=== PATIENT | female | born 1980 | race Caucasian/White ===

== ENCOUNTER 2018-04-05 07:59 | Emergency (ER) | payer OTHER ==
[~2018-04-05] VITALS: Ht 162.6 cm; Wt 81.6 kg
--- OUTSIDE RECORDS SUMMARY | 2018-04-05 08:06 | XMS REPORT ---
Author RIZWANA Bailey [facility] eClinicalWorks Address Unknown Phone Unavailable Care Team Providers Care Manager Quality Systems Name Role Phone RIZWANA JUSTIN CP Unavailable Allergies, Adverse Reactions, Alerts Substance Reaction Event Type Codeine Info Not Available Drug Allergy Cozaar 25 Mg Tablet shortness of breath Non Drug Allergy Problems Problem Type Condition Code Onset Dates Condition Status Problem Other acne 706.1 Active Problem Unspecified labyrinthitis 386.30 Active Problem Screening for thyroid disorder V77.0 Active Problem UTI (urinary tract infection) 599.0 Active Problem Allergic (intrinsic) eczema 691.8 Active Problem Hypertension, benign I10 Active Problem Other malaise and fatigue 780.79 Active Problem Cough 786.2 Active Problem Chest pain, unspecified 786.50 Active Problem Acute bronchitis 466.0 Active Assessment Chest pain, unspecified type R07.9 Active Problem Acute upper respiratory infections of unspecified site 465.9 Active Problem Urinary tract infection, site not specified 599.0 Active Assessment Family history of early CAD Z82.49 Active Problem Acute pharyngitis 462 Active Medications Medication Code System Code Instructions Start Date End Date Status Dosage Lisinopril-Hydrochlorothiazide [facility] [id number] 20-25 TAKE ONE TABLET BY MOUTH DAILY Depo-Provera [facility] [address]-78 150 MG/ML Intramuscular 1 ml Fish Oil [facility] [address]841 306 MG Orally not defined Bentyl [facility] [address]-30 20 MG Orally Four times a day 1 tablet Metoprolol Tartrate [facility] 46795857432 25 TAKE ONE TABLET BY MOUTH TWICE A DAY Procedures Procedure Coding System Code Date ELECTROCARDIOGRAM, TRACING CPT-4 52057 Apr 15, 2015 Office Visit, Est Pt., Level 3 CPT-4 28984 Apr 15, 2015 CHEST X-RAY CPT-4 21384 Apr 15, 2015 Vital Signs Date/Time: Apr 15, 2015 Temperature 98.4 F Weight 213.4 lbs Height 64 in BMI 36.63 Index Blood Pressure Diastolic 74 mmHg Blood Pressure Systolic 128 mmHg Cardiac Monitoring Heart Rate 80 bpm Results No Known Results Summary Purpose eClinicalWorks Submission
--- OUTSIDE RECORDS SUMMARY | 2018-04-05 08:06 | XMS REPORT ---
Author RIZWANA Bailey [facility] eClinicalWorks Address Unknown Phone Unavailable Care Team Providers Care Insemination Worker Name Role Phone RIZWANA JUSTIN CP Unavailable [...] Active Problem Acute bronchitis 466.0 Active Assessment Allergic reaction, subsequent encounter T78.40XD Active Problem Acute upper respiratory infections of unspecified site 465.9 Active Problem Urinary tract infection, site not specified 599.0 Active Assessment Hypertension, benign I10 Active Problem Acute pharyngitis 462 Active Medications Medication Code System Code Instructions Start Date End Date Status Dosage Bentyl [facility] [address]-33 20 MG Orally Four times a day 1 tablet HydrOXYzine HCl [facility] [address]-31 50 MG Orally every 6 hrs Jan 02, 2015 1 tablet as needed Depo-Provera [facility] [address]-14 150 MG/ML Intramuscular 1 ml Metoprolol Tartrate [facility] 86016593824 25 TAKE ONE TABLET BY MOUTH TWICE A DAY Lisinopril-Hydrochlorothiazide [facility] [id number] 20-25 TAKE ONE TABLET BY MOUTH DAILY Procedures Procedure Coding System Code Date DEPO MEDROL 40 MG/ML CPT-4 J1030 Jan 02, 2015 THER/PROPH/DIAG INJ, SC/IM CPT-4 04080 Jan 02, 2015 Office Visit, Est Pt., Level 3 CPT-4 34603 Jan 02, 2015 Vital Signs Date/Time: Jan 02, 2015 Temperature 98.7 F Weight 214.1 lbs Height 64 in BMI 36.75 Index Blood Pressure Diastolic 80 mmHg Blood Pressure Systolic 122 mmHg Cardiac Monitoring Heart Rate 84 bpm Results No Known Results Summary Purpose eClinicalWorks Submission
--- OUTSIDE RECORDS SUMMARY | 2018-04-05 08:06 | XMS REPORT ---
Author ARY Ca [facility] eClinicalWorks Address Unknown Phone Unavailable Care Team Providers Care Manager Respiratory Care Name Role Phone ARY DON CP Unavailable Allergies, Adverse Reactions, Alerts Substance Reaction Event Type Codeine Info Not Available Drug Allergy Cozaar 25 Mg Tablet shortness of breath Non Drug Allergy Problems Problem Type Condition ICD-9 Code Onset Dates Condition Status Problem Acute pharyngitis 462 Active Problem Screening for thyroid disorder V77.0 Active Problem Other acne 706.1 Active Problem Allergic (intrinsic) eczema 691.8 Active Problem Chest pain, unspecified 786.50 Active Problem UTI (urinary tract infection) 599.0 Active Problem Cough 786.2 Active Problem Unspecified labyrinthitis 386.30 Active Problem Acute bronchitis 466.0 Active Problem Other malaise and fatigue 780.79 Active Assessment Allergic (intrinsic) eczema 691.8 Active Assessment UTI (urinary tract infection) 599.0 Active Problem Acute upper respiratory infections of unspecified site 465.9 Active Problem Urinary tract infection, site not specified 599.0 Active Medications Medication Code System Code Instructions Start Date End Date Status Dosage Lisinopril-Hydrochlorothiazide [facility] [id number] 20-25 TAKE ONE TABLET BY MOUTH DAILY Hydrocortisone [facility] [address]-59 2.5 % Externally Twice a day Dec 11, 2014 Jan 10, 2015 1 application to affected area Metoprolol Tartrate [facility] 46085817119 25 TAKE ONE TABLET BY MOUTH TWICE A DAY Pyridium [facility] [address]-85 200 MG Orally Three times a day Dec 11, 2014 Dec 25, 2014 1 tablet after meals Sulfamethoxazole-TMP DS [facility] [address]-01 800-160 MG Orally 2 times a day Dec 11, 2014 Dec 21, 2014 1 tablet Depo-Provera [facility] [address]-91 150 MG/ML Intramuscular 1 ml Procedures Procedure Coding System Code Date Office Visit, Est Pt., Level 3 CPT-4 85370 Dec 11, 2014 URINALYSIS, AUTO, W/O SCOPE CPT-4 03466 Dec 11, 2014 Vital Signs Date/Time: Dec 11, 2014 Temperature 98.5 F Weight 214.1 lbs Height 64 in BMI 36.75 Index Blood Pressure Diastolic 60 mmHg Blood Pressure Systolic 120 mmHg Cardiac Monitoring Heart Rate 82 bpm Results Name Result Date Reference Range Unit Abnormality Flag UA LONG DIP (IN HOUSE) Summary Purpose eClinicalWorks Submission
--- OUTSIDE RECORDS SUMMARY | 2018-04-05 08:06 | XMS REPORT ---
Author Author SLADE HEAD Organization eClinicalWorks Address Unknown Phone Unavailable Care Team Providers Care Boatwright Name Role Phone SLADE HEAD CP Unavailable Allergies, Adverse Reactions, Alerts Substance Reaction Event Type Codeine Info Not Available Drug Allergy Cozaar 25 Mg Tablet shortness of breath Non Drug Allergy Problems Problem Type Condition Code Onset Dates Condition Status Problem Acute pharyngitis 462 Active Problem Screening for thyroid disorder V77.0 Active Problem Other acne 706.1 Active Problem Allergic (intrinsic) eczema 691.8 Active Problem Chest pain, unspecified 786.50 Active Problem UTI (urinary tract infection) 599.0 Active Problem Cough 786.2 Active Problem Unspecified labyrinthitis 386.30 Active Problem Acute bronchitis 466.0 Active Problem Other malaise and fatigue 780.79 Active Assessment Urticaria L50.9 Active Problem Acute upper respiratory infections of unspecified site 465.9 Active Problem Urinary tract infection, site not specified 599.0 Active Medications Medication Code System Code Instructions Start Date End Date Status Dosage Metoprolol Tartrate [facility] [id number] 25 TAKE ONE TABLET BY MOUTH TWICE A DAY Lisinopril-Hydrochlorothiazide [facility] [id number] 20-25 TAKE ONE TABLET BY MOUTH DAILY Depo-Provera [facility] [address]-82 150 MG/ML Intramuscular 1 ml PredniSONE [facility] [address]-46 50 MG Orally Once a day Dec 23, 2014 Dec 28, 2014 as directed Procedures Procedure Coding System Code Date Office Visit, Est Pt., Level 2 CPT-4 55703 Dec 23, 2014 Vital Signs Date/Time: Dec 23, 2014 Temperature 98.0 F Weight 213 lbs Height 64 in BMI 36.56 Index Blood Pressure Diastolic 62 mmHg Blood Pressure Systolic 128 mmHg Cardiac Monitoring Heart Rate 88 bpm Results No Known Results Summary Purpose eClinicalWorks Submission
--- OUTSIDE RECORDS SUMMARY | 2018-04-05 08:06 | XMS REPORT ---
Author Author RIZWANA JUSTIN Organization eClinicalWorks Address Unknown Phone Unavailable Care Team Providers Care [facility] Receiving Clerk Name Role Phone RIZWANA JUSTIN CP Unavailable Allergies No Known Allergies Problems Problem Type Condition Code Onset Dates [...] Active Problem Acute bronchitis 466.0 Active Assessment Hypertension, benign I10 Active Problem Acute upper respiratory infections of unspecified site 465.9 Active Problem Urinary tract infection, site not specified 599.0 Active Problem Acute pharyngitis 462 Active Medications No Known Medications Procedures Procedure Coding System Code Date COMPLETE CBC W/AUTO DIFF WBC CPT-4 58262 Jan 07, 2015 LIPID PANEL CPT-4 76342 Jan 07, 2015 ASSAY THYROID STIM HORMONE CPT-4 40251 Jan 07, 2015 VENIPUNCT, ROUTINE* CPT-4 79867 Jan 07, 2015 COMPREHEN METABOLIC PANEL CPT-4 46718 Jan 07, 2015 Results Name Result Date Reference Range Unit Abnormality Flag ROUTINE VENIPUNCTURE Summary Purpose eClinicalWorks Submission
--- OUTSIDE RECORDS SUMMARY | 2018-04-05 08:07 | XMS REPORT | Continuity of Care Document ---
Author Author [facility] Address Unknown Phone Unavailable Allergies Active Description Code Type Severity Reaction Onset Reported/Identified Relationship to Patient Clinical Status Yes Imitrex Drug Allergy N/A N/A 06/12/2008 Yes Maxalt-FOOD SERVICE ATTENDANT Drug Allergy N/A N/A 06/12/2008 Yes Imitrex Drug Allergy 06/12/2008 Yes Maxalt-FOOD SERVICE ATTENDANT Drug Allergy 06/12/2008 Yes Flonase Drug Allergy N/A N/A 08/02/2008 Yes Flonase Drug Allergy 08/02/2008 Yes codeine [id number] Drug Allergy Unknown N/A 06/09/2009 Yes fluticasone [id number] Drug Allergy Unknown N/A 06/09/2009 Yes tramadol [id number] Drug Allergy Unknown N/A 06/09/2009 Yes Coumadin Drug Allergy N/A N/A 06/01/2011 Yes Coumadin Drug Allergy 06/01/2011 Yes Cozaar 25 mg Tablet Drug Allergy N/A N/A 06/06/2011 Yes Cozaar 25 mg Tablet Drug Allergy 06/06/2011 Yes Codeine Drug Allergy N/A N/A 02/20/2012 Yes Codeine Drug Allergy 02/20/2012 Medications There is no data. Problems Date Dx Coded Attending Type Code Diagnosis Diagnosed By 09/26/2007 RIZWANA JUSTIN APRN 616.10 VAGINITIS AND VULVOVAGINITIS UNSPECIFIED 09/26/2007 616.10 VAGINITIS AND VULVOVAGINITIS UNSPECIFIED 09/26/2007 616.10 VAGINITIS AND VULVOVAGINITIS UNSPECIFIED 09/26/2007 MICHAEL KNAPP APRN 616.10 VAGINITIS AND VULVOVAGINITIS UNSPECIFIED 09/26/2007 616.10 VAGINITIS AND VULVOVAGINITIS UNSPECIFIED 09/26/2007 DANTE CIFUENTES DO 616.10 VAGINITIS AND VULVOVAGINITIS UNSPECIFIED 09/26/2007 MARU SOUSA APRN N 616.10 VAGINITIS AND VULVOVAGINITIS UNSPECIFIED 09/26/2007 RIZWANA JUSTIN APRN 616.10 VAGINITIS AND VULVOVAGINITIS UNSPECIFIED 09/26/2007 KG LEONARDO APRN R 616.10 VAGINITIS AND VULVOVAGINITIS UNSPECIFIED 09/26/2007 RIZWANA JUSTIN APRN 616.10 VAGINITIS AND VULVOVAGINITIS UNSPECIFIED 09/26/2007 ESAU QUIROS, DANTE K 616.10 VAGINITIS AND VULVOVAGINITIS UNSPECIFIED 09/26/2007 RIZWANA JUSTIN APRN 616.10 VAGINITIS AND VULVOVAGINITIS UNSPECIFIED 09/26/2007 AUBRIE GREWAL APRN 616.10 VAGINITIS AND VULVOVAGINITIS UNSPECIFIED 11/22/2007 RIZWANA JUSTIN APRN 401.1 HYPERTENSION, BENIGN ESSENTIAL 11/22/2007 RIZWANA JUSTIN APRN 724.2 PAIN LOW BACK 11/22/2007 RIZWANA JUSTIN APRN 780.4 DIZZINESS AND VERTIGO 11/22/2007 401.1 HYPERTENSION, BENIGN ESSENTIAL 11/22/2007 724.2 PAIN LOW BACK 11/22/2007 780.4 DIZZINESS AND VERTIGO 11/22/2007 401.1 HYPERTENSION, BENIGN ESSENTIAL 11/22/2007 724.2 PAIN LOW BACK 11/22/2007 780.4 DIZZINESS AND VERTIGO 11/22/2007 MICHAEL KNAPP APRN R 401.1 HYPERTENSION, BENIGN ESSENTIAL 11/22/2007 MICHAEL KNAPP APRN R 724.2 PAIN LOW BACK 11/22/2007 MICHAEL KNAPP APRN R 780.4 DIZZINESS AND VERTIGO 11/22/2007 401.1 HYPERTENSION, BENIGN ESSENTIAL 11/22/2007 724.2 PAIN LOW BACK 11/22/2007 780.4 DIZZINESS AND VERTIGO 11/22/2007 CIFUENTES DO DANTE K 401.1 HYPERTENSION, BENIGN ESSENTIAL 11/22/2007 CIFUENTES DO, DANTE K 724.2 PAIN LOW BACK 11/22/2007 CIFUENTES DO, DANTE K 780.4 DIZZINESS AND VERTIGO 11/22/2007 MARU SOUSA APRN N 401.1 HYPERTENSION, BENIGN ESSENTIAL 11/22/2007 MARU SOUSA APRN N 724.2 PAIN LOW BACK 11/22/2007 JIHAN RAMOSFRANCK RODRÍGUEZ, MARU N 780.4 DIZZINESS AND VERTIGO 11/22/2007 RIZWANA JUSTIN APRN 401.1 HYPERTENSION, BENIGN ESSENTIAL 11/22/2007 RIZWANA JUSTIN APRN T 724.2 PAIN LOW BACK 11/22/2007 RIZWANA JUSTIN APRN T 780.4 DIZZINESS AND VERTIGO 11/22/2007 JORDEN GYMNASIUM TEACHER, KG R 401.1 HYPERTENSION, BENIGN ESSENTIAL 11/22/2007 JORDEN GYMNASIUM TEACHER, KG R 724.2 PAIN LOW BACK 11/22/2007 JORDEN GYMNASIUM TEACHER, KG R 780.4 DIZZINESS AND VERTIGO 11/22/2007 RIZWANA JUSTIN APRN T 401.1 HYPERTENSION, BENIGN ESSENTIAL 11/22/2007 RIZWANA JUSTIN APRN T 724.2 PAIN LOW BACK 11/22/2007 RIZWANA JUSTIN APRN T 780.4 DIZZINESS AND VERTIGO 11/22/2007 CIFUENTES DO, DANTE K 401.1 HYPERTENSION, BENIGN ESSENTIAL 11/22/2007 CIFUENTES DO, DANTE K 724.2 PAIN LOW BACK 11/22/2007 CIFUENTES DO, DANTE K 780.4 DIZZINESS AND VERTIGO 11/22/2007 RIZWANA JUSTIN APRN 401.1 HYPERTENSION, BENIGN ESSENTIAL 11/22/2007 RIZWANA JUSTIN APRN 724.2 PAIN LOW BACK 11/22/2007 RIZWANA JUSTIN APRN 780.4 DIZZINESS AND VERTIGO 11/22/2007 AUBRIE GREWAL APRN S 401.1 HYPERTENSION, BENIGN ESSENTIAL 11/22/2007 LETA GREWAL APRNA S 724.2 PAIN LOW BACK 11/22/2007 LETA GREWAL APRNA S 780.4 DIZZINESS AND VERTIGO 12/03/2007 RIZWANA JUSTIN APRN 784.0 headache 12/03/2007 784.0 headache 12/03/2007 784.0 headache 12/03/2007 MICHAEL KNAPP APRN R 784.0 headache 12/03/2007 784.0 headache 12/03/2007 CIFUENTES DO, DANTE K 784.0 headache 12/03/2007 JIHAN THOMAS APRN, MARU N 784.0 headache 12/03/2007 RIZWANA JUSTIN APRN 784.0 HEADACHE 12/03/2007 JORDEN EMERYN, KG R 784.0 HEADACHE 12/03/2007 RIZWANA JUSTIN APRN 784.0 HEADACHE 12/03/2007 CIFUENTES DO, DANTE K 784.0 HEADACHE 12/03/2007 RIZWANA JUSTIN APRN T 784.0 HEADACHE 12/03/2007 CARMINAYANETH RODRÍGUEZ AUBRIE S 784.0 HEADACHE 12/14/2007 RIZWANA JUSTIN APRN 785.0 TACHYCARDIA UNSPECIFIED 12/14/2007 785.0 TACHYCARDIA UNSPECIFIED 12/14/2007 785.0 TACHYCARDIA UNSPECIFIED 12/14/2007 MICHAEL KNAPP APRN R 785.0 TACHYCARDIA UNSPECIFIED 12/14/2007 785.0 TACHYCARDIA UNSPECIFIED 12/14/2007 CIFUENTES DO, DANTE K 785.0 TACHYCARDIA UNSPECIFIED 12/14/2007 JIHAN THOMAS APRN, MARU N 785.0 TACHYCARDIA UNSPECIFIED 12/14/2007 RIZWANA JUSTIN APRN 785.0 TACHYCARDIA UNSPECIFIED 12/14/2007 JORDEN RODRÍGUEZ KG R 785.0 TACHYCARDIA UNSPECIFIED 12/14/2007 RIZWANA JUSTIN APRN 785.0 TACHYCARDIA UNSPECIFIED 12/14/2007 CIFUENTES DO, DANTE K 785.0 TACHYCARDIA UNSPECIFIED 12/14/2007 RIZWANA JUSTIN APRN 785.0 TACHYCARDIA UNSPECIFIED 12/14/2007 AUBRIE GREWAL APRN S 785.0 TACHYCARDIA UNSPECIFIED 12/21/2007 RIZWANA JUSTIN APRN 401.9 UNSPECIFIED ESSENTIAL HYPERTENSION 12/21/2007 401.9 UNSPECIFIED ESSENTIAL HYPERTENSION 12/21/2007 401.9 UNSPECIFIED ESSENTIAL HYPERTENSION 12/21/2007 ANIKET KNAPP APRNIA R 401.9 UNSPECIFIED ESSENTIAL HYPERTENSION 12/21/2007 401.9 UNSPECIFIED ESSENTIAL HYPERTENSION 12/21/2007 CIFUENTES DO, DANTE K 401.9 UNSPECIFIED ESSENTIAL HYPERTENSION 12/21/2007 JIHAN THOMAS APRN, MARU N 401.9 UNSPECIFIED ESSENTIAL HYPERTENSION 12/21/2007 RIZWANA JUSTIN APRN 401.9 UNSPECIFIED ESSENTIAL HYPERTENSION 12/21/2007 JORDEN RODRÍGUEZ KG R 401.9 UNSPECIFIED ESSENTIAL HYPERTENSION 12/21/2007 RIZWANA JUSTIN APRN 401.9 UNSPECIFIED ESSENTIAL HYPERTENSION 12/21/2007 CIFUENTES DO, DANTE K 401.9 UNSPECIFIED ESSENTIAL HYPERTENSION 12/21/2007 RIZWANA JUSTIN APRN 401.9 UNSPECIFIED ESSENTIAL HYPERTENSION 12/21/2007 AUBRIE GREWAL APRN S 401.9 UNSPECIFIED ESSENTIAL HYPERTENSION 12/31/2007 RIZWANA JUSTIN APRN 595.0 CYSTITIS, ACUTE 12/31/2007 595.0 CYSTITIS, ACUTE 12/31/2007 595.0 CYSTITIS, ACUTE 12/31/2007 ANIKET KNAPP APRNIA R 595.0 CYSTITIS, ACUTE 12/31/2007 595.0 CYSTITIS, ACUTE 12/31/2007 ESAU QUIROS, DANTE K 595.0 CYSTITIS, ACUTE 12/31/2007 BERNARDA SOUSA APRNCY N 595.0 CYSTITIS, ACUTE 12/31/2007 RIZWANA JUSTIN APRN 595.0 CYSTITIS, ACUTE 12/31/2007 JORDEN RODRÍGUEZ, KG R 595.0 CYSTITIS, ACUTE 12/31/2007 RIZWANA JUSTIN APRN 595.0 CYSTITIS, ACUTE 12/31/2007 MARÍA CIFUENTES DOA K 595.0 CYSTITIS, ACUTE 12/31/2007 RIZWANA JUSTIN APRN 595.0 CYSTITIS, ACUTE 12/31/2007 AUBRIE GREWAL APRN S 595.0 CYSTITIS, ACUTE 01/02/2008 RIZWANA JUSTIN APRN 461.9 SINUSITIS ACUTE 01/02/2008 461.9 SINUSITIS ACUTE 01/02/2008 461.9 SINUSITIS ACUTE 01/02/2008 MICHAEL KNAPP APRN R 461.9 SINUSITIS ACUTE 01/02/2008 461.9 SINUSITIS ACUTE 01/02/2008 ESAU QUIROS DANTE K 461.9 SINUSITIS ACUTE 01/02/2008 MARU SOUSA APRN N 461.9 SINUSITIS ACUTE 01/02/2008 RIZWANA JUSTIN APRN 461.9 SINUSITIS ACUTE 01/02/2008 JORDEN RODRÍGUEZ KG R 461.9 SINUSITIS ACUTE 01/02/2008 RIZWANA JUSTIN APRN 461.9 SINUSITIS ACUTE 01/02/2008 CIFUENTES DO DANTE K 461.9 SINUSITIS ACUTE 01/02/2008 RIZWANA JUSTIN APRN 461.9 SINUSITIS ACUTE 01/02/2008 LETA GREWAL APRNA S 461.9 SINUSITIS ACUTE 02/09/2008 RIZWANA JUSTIN APRN V74.5 SCREENING EXAMINATION FOR VENEREAL DISEASE 02/09/2008 V74.5 SCREENING EXAMINATION FOR VENEREAL DISEASE 02/09/2008 V74.5 SCREENING EXAMINATION FOR VENEREAL DISEASE 02/09/2008 MICHAEL KNAPP APRN R V74.5 SCREENING EXAMINATION FOR VENEREAL DISEASE 02/09/2008 V74.5 SCREENING EXAMINATION FOR VENEREAL DISEASE 02/09/2008 ESAU QUIROS, DANTE K V74.5 SCREENING EXAMINATION FOR VENEREAL DISEASE 02/09/2008 MARU SOUSA APRN N V74.5 SCREENING EXAMINATION FOR VENEREAL DISEASE 02/09/2008 RIZWANA JUSTIN APRN V74.5 SCREENING EXAMINATION FOR VENEREAL DISEASE 02/09/2008 KG LEONARDO APRN R V74.5 SCREENING EXAMINATION FOR VENEREAL DISEASE 02/09/2008 RIZWANA JUSTIN APRN V74.5 SCREENING EXAMINATION FOR VENEREAL DISEASE 02/09/2008 ESAU QUIROS, DANTE K V74.5 SCREENING EXAMINATION FOR VENEREAL DISEASE 02/09/2008 RIZWANA JUSTIN APRN V74.5 SCREENING EXAMINATION FOR VENEREAL DISEASE 02/09/2008 AUBRIE GREWAL APRN S V74.5 SCREENING EXAMINATION FOR VENEREAL DISEASE 02/12/2008 RIZWANA JUSTIN APRN 780.79 MALAISE AND FATIGUE 02/12/2008 780.79 MALAISE AND FATIGUE 02/12/2008 780.79 MALAISE AND FATIGUE 02/12/2008 MICHAEL KNAPP APRN R 780.79 MALAISE AND FATIGUE 02/12/2008 780.79 MALAISE AND FATIGUE 02/12/2008 MARÍA CIFUENTES DOA K 780.79 MALAISE AND FATIGUE 02/12/2008 MARU SOUSA APRN N 780.79 MALAISE AND FATIGUE 02/12/2008 RIZWANA JUSTIN APRN 780.79 MALAISE AND FATIGUE 02/12/2008 ILEANA LEONARDO APRNINA R 780.79 MALAISE AND FATIGUE 02/12/2008 RIZWANA JUSTIN APRN 780.79 MALAISE AND FATIGUE 02/12/2008 ESAU QUIROS DANTE K 780.79 MALAISE AND FATIGUE 02/12/2008 RIZWANA JUSTIN APRN 780.79 MALAISE AND FATIGUE 02/12/2008 AUBRIE GREWAL APRN S 780.79 MALAISE AND FATIGUE 02/20/2008 RIZWANA JUSTIN APRN 079.99 VIRAL SYNDROME 02/20/2008 079.99 VIRAL SYNDROME 02/20/2008 079.99 VIRAL SYNDROME 02/20/2008 ANIKET KNAPP APRNIA R 079.99 VIRAL SYNDROME 02/20/2008 079.99 VIRAL SYNDROME 02/20/2008 CIFUENTES DO, DANTE K 079.99 VIRAL SYNDROME 02/20/2008 JIHAN THOMAS GYMNASIUM TEACHER, MARU N 079.99 VIRAL SYNDROME 02/20/2008 RIZWANA JUSTIN APRN 079.99 VIRAL SYNDROME 02/20/2008 JORDEN RODRÍGUEZ KG R 079.99 VIRAL SYNDROME 02/20/2008 RIZWANA JUSTIN APRN T 079.99 VIRAL SYNDROME 02/20/2008 CIFUENTES DO, DANTE K 079.99 VIRAL SYNDROME 02/20/2008 RIZWANA JUSTIN APRN T 079.99 VIRAL SYNDROME 02/20/2008 LETA GREWAL APRNA S 079.99 VIRAL SYNDROME 04/01/2008 RIZWANA JUSTIN APRN V25.40 CONTRACEPTIVE SURVEILLANCE UNSPECIFIED 04/01/2008 V25.40 CONTRACEPTIVE SURVEILLANCE UNSPECIFIED 04/01/2008 V25.40 CONTRACEPTIVE SURVEILLANCE UNSPECIFIED 04/01/2008 MICHAEL KNAPP APRN R V25.40 CONTRACEPTIVE SURVEILLANCE UNSPECIFIED 04/01/2008 V25.40 CONTRACEPTIVE SURVEILLANCE UNSPECIFIED 04/01/2008 CIFUENTES DO, DANTE K V25.40 CONTRACEPTIVE SURVEILLANCE UNSPECIFIED 04/01/2008 JIHAN THOMAS APRN, MARU N V25.40 CONTRACEPTIVE SURVEILLANCE UNSPECIFIED 04/01/2008 RIZWANA JUSTIN APRN V25.40 CONTRACEPTIVE SURVEILLANCE UNSPECIFIED 04/01/2008 ILEANA LEONARDO APRNINA R V25.40 CONTRACEPTIVE SURVEILLANCE UNSPECIFIED 04/01/2008 RIZWANA JUSTIN APRN V25.40 CONTRACEPTIVE SURVEILLANCE UNSPECIFIED 04/01/2008 CIFUENTES DO DANTE K V25.40 CONTRACEPTIVE SURVEILLANCE UNSPECIFIED 04/01/2008 RIZWANA JUSTIN APRN V25.40 CONTRACEPTIVE SURVEILLANCE UNSPECIFIED 04/01/2008 STEFANIE GREWAL APRNNDA S V25.40 CONTRACEPTIVE SURVEILLANCE UNSPECIFIED 05/14/2008 RIZWANA JUSTIN APRN 780.60 fever [as symptom] 05/14/2008 RIZWANA JUSTIN APRN 787.01 nausea with vomiting 05/14/2008 780.60 fever [as symptom] 05/14/2008 787.01 nausea with vomiting 05/14/2008 780.60 fever [as symptom] 05/14/2008 787.01 nausea with vomiting 05/14/2008 MICHAEL KNAPP APRN R 780.60 fever [as symptom] 05/14/2008 MICHAEL KNAPP APRN R 787.01 nausea with vomiting 05/14/2008 780.60 fever [as symptom] 05/14/2008 787.01 nausea with vomiting 05/14/2008 CIFUENTES DO, DANTE K 780.60 fever [as symptom] 05/14/2008 CIFUENTES DO, DANTE K 787.01 nausea with vomiting 05/14/2008 OBBO HOUSTONMARU JUÁREZ APRN N 780.60 fever [as symptom] 05/14/2008 BOBO HOUSTONMARU JUÁREZ APRN N 787.01 nausea with vomiting 05/14/2008 RIZWANA JUSTIN APRN 780.60 FEVER [ SYMPTOM] 05/14/2008 RIZWANA JUSTIN APRN 787.01 NAUSEA WITH VOMITING 05/14/2008 KG LEONARDO APRN R 780.60 FEVER [ SYMPTOM] 05/14/2008 KG LEONARDO APRN R 787.01 NAUSEA WITH VOMITING 05/14/2008 RIZWANA JUSTIN APRN 780.60 FEVER [ SYMPTOM] 05/14/2008 RIZWANA JUSTIN APRN 787.01 NAUSEA WITH VOMITING 05/14/2008 ESAU DO, DANTE K 780.60 FEVER [ SYMPTOM] 05/14/2008 ESAU DO, DANTE K 787.01 NAUSEA WITH VOMITING 05/14/2008 RIZWANA JUSTIN APRN 780.60 FEVER [ SYMPTOM] 05/14/2008 RIZWANA JUSTIN APRN 787.01 NAUSEA WITH VOMITING 05/14/2008 AUBRIE GREWAL APRN S 780.60 FEVER [ SYMPTOM] 05/14/2008 AUBRIE GREWAL APRN S 787.01 NAUSEA WITH VOMITING 06/14/2008 RIZWANA JUSTIN APRN 438.85 VERTIGO 06/14/2008 438.85 VERTIGO 06/14/2008 438.85 VERTIGO 06/14/2008 MICHAEL KNAPP APRN 438.85 VERTIGO 06/14/2008 438.85 VERTIGO 06/14/2008 CIFUENTES DO, DANTE K 438.85 VERTIGO 06/14/2008 MARU SOUSA APRN N 438.85 VERTIGO 06/14/2008 RIZWANA JUSTIN APRN 438.85 VERTIGO 06/14/2008 JORDEN RODRÍGUEZ KG R 438.85 VERTIGO 06/14/2008 RIZWANA JUSTIN APRN T 438.85 VERTIGO 06/14/2008 CIFUENTES DO, DANTE K 438.85 VERTIGO 06/14/2008 RIZWANA JUSTIN APRN 438.85 VERTIGO 06/14/2008 AUBRIE GREWAL APRN S 438.85 VERTIGO 07/17/2008 RIZWANA JUSTIN APRN 729.5 PAIN IN LIMB 07/17/2008 729.5 PAIN IN LIMB 07/17/2008 729.5 PAIN IN LIMB 07/17/2008 MICHAEL KNAPP APRN R 729.5 PAIN IN LIMB 07/17/2008 729.5 PAIN IN LIMB 07/17/2008 CIFUENTES DO, ADNTE K 729.5 PAIN IN LIMB 07/17/2008 MARU SOUSA APRN N 729.5 PAIN IN LIMB 07/17/2008 RIZWANA JUSTIN APRN 729.5 PAIN IN LIMB 07/17/2008 ILEANA LEONARDO APRNINA R 729.5 PAIN IN LIMB 07/17/2008 RIZWANA JUSTIN APRN 729.5 PAIN IN LIMB 07/17/2008 CIFUENTES DO, DANTE K 729.5 PAIN IN LIMB 07/17/2008 RIZWANA JUSTIN APRN 729.5 PAIN IN LIMB 07/17/2008 AUBRIE GREWAL APRN S 729.5 PAIN IN LIMB 09/09/2008 RIZWANA JUSTIN APRN 599.0 URINARY TRACT INFECTION 09/09/2008 RIZWANA JUSTIN APRN 788.1 pain during urination (dysuria) 09/09/2008 599.0 URINARY TRACT INFECTION 09/09/2008 788.1 pain during urination (dysuria) 09/09/2008 599.0 URINARY TRACT INFECTION 09/09/2008 788.1 pain during urination (dysuria) 09/09/2008 MICHAEL KNAPP APRN R 599.0 URINARY TRACT INFECTION 09/09/2008 MICHAEL KNAPP APRN R 788.1 pain during urination (dysuria) 09/09/2008 599.0 URINARY TRACT INFECTION 09/09/2008 788.1 pain during urination (dysuria) 09/09/2008 CIFUENTES DO, DANTE K 599.0 URINARY TRACT INFECTION 09/09/2008 CIFUENTES DO, DANTE K 788.1 pain during urination (dysuria) 09/09/2008 JIHAN THOMAS GYMNASIUM TEACHER, MARU N 599.0 URINARY TRACT INFECTION 09/09/2008 JIHAN THOMAS GYMNASIUM TEACHER, MARU N 788.1 pain during urination (dysuria) 09/09/2008 RIZWANA JUSTIN APRN 599.0 URINARY TRACT INFECTION 09/09/2008 RIZWANA JUSTIN APRN 788.1 PAIN DURING URINATION (DYSURIA) 09/09/2008 JORDEN ANNE, KG R 599.0 URINARY TRACT INFECTION 09/09/2008 JORDEN GYMNASIUM TEACHER, KG R 788.1 PAIN DURING URINATION (DYSURIA) 09/09/2008 RIZWANA JUSTIN APRN 599.0 URINARY TRACT INFECTION 09/09/2008 RIZWANA JUSTIN APRN 788.1 PAIN DURING URINATION (DYSURIA) 09/09/2008 CIFUENTES DO, DANTE K 599.0 URINARY TRACT INFECTION 09/09/2008 CIFUENTES DO, DATNE K 788.1 PAIN DURING URINATION (DYSURIA) 09/09/2008 RIZWANA JUSTIN APRN 599.0 URINARY TRACT INFECTION 09/09/2008 RIZWANA JUSTIN APRN 788.1 PAIN DURING URINATION (DYSURIA) 09/09/2008 CARMINA RODRÍGUEZ AUBRIE S 599.0 URINARY TRACT INFECTION 09/09/2008 CARMINA RODRÍGUEZ AUBRIE S 788.1 PAIN DURING URINATION (DYSURIA) 11/21/2008 RIZWANA JUSTIN APRN 477.9 ALLERGIC RHINITIS 11/21/2008 RIZWANA JUSTIN APRN 786.2 cough 11/21/2008 RIZWANA JUSTIN APRN V22.2 11/21/2008 477.9 ALLERGIC RHINITIS 11/21/2008 786.2 cough 11/21/2008 V22.2 11/21/2008 477.9 ALLERGIC RHINITIS 11/21/2008 786.2 cough 11/21/2008 V22.2 11/21/2008 MICHAEL KNAPP APRN 477.9 ALLERGIC RHINITIS 11/21/2008 KNAPP GYMNASIUM TEACHER, MICHAEL R 786.2 cough 11/21/2008 KNAPP GYMNASIUM TEACHER, MICHAEL R V22.2 11/21/2008 477.9 ALLERGIC RHINITIS 11/21/2008 786.2 cough 11/21/2008 V22.2 11/21/2008 CIFUENTES DO, DANTE K 477.9 ALLERGIC RHINITIS 11/21/2008 CIFUENTES DO, DANTE K 786.2 cough 11/21/2008 CIFUENTES DO, DANTE K V22.2 11/21/2008 BOBO CASHERO GYMNASIUM TEACHER, MARU N 477.9 ALLERGIC RHINITIS 11/21/2008 BOBO CASHERO GYMNASIUM TEACHER, MARU N 786.2 cough 11/21/2008 BOBO CASHERO GYMNASIUM TEACHER, MARU N V22.2 11/21/2008 RIZWANA JUSTIN APRN 477.9 ALLERGIC RHINITIS 11/21/2008 RIZWANA JUSTIN APRN 786.2 COUGH 11/21/2008 RIZWANA JUSTIN APRN V22.2 11/21/2008 JORDEN GYMNASIUM TEACHER, KG R 477.9 ALLERGIC RHINITIS 11/21/2008 JORDEN GYMNASIUM TEACHER, KG R 786.2 COUGH 11/21/2008 JORDEN GYMNASIUM TEACHER, KG R V22.2 11/21/2008 RIZWANA JUSTIN APRN 477.9 ALLERGIC RHINITIS 11/21/2008 RIZWANA JUSTIN APRN 786.2 COUGH 11/21/2008 RIZWANA JUSTIN APRN T V22.2 11/21/2008 CIFUENTES DO, DANTE K 477.9 ALLERGIC RHINITIS 11/21/2008 CIFUENTES DO, DANTE K 786.2 COUGH 11/21/2008 CIFUENTES DO, DANTE K V22.2 11/21/2008 RIZWANA JUSTIN APRN T 477.9 ALLERGIC RHINITIS 11/21/2008 RIZWANA JUSTIN APRN T 786.2 COUGH 11/21/2008 RIZWANA JUSTIN APRN T V22.2 11/21/2008 AUBRIE GREWAL APRN S 477.9 ALLERGIC RHINITIS 11/21/2008 CARMINA RODRÍGUEZ, AUBRIE S 786.2 COUGH 11/21/2008 CARMINA RODRÍGUEZ AUBRIE S V22.2 07/29/2009 RIZWANA JUSTIN APRN 782.3 EDEMA 07/29/2009 782.3 EDEMA 07/29/2009 782.3 EDEMA 07/29/2009 ANIKET KNAPP APRNIA R 782.3 EDEMA 07/29/2009 782.3 EDEMA 07/29/2009 CIFUENTES DO, DANTE K 782.3 EDEMA 07/29/2009 JIHAN THOMAS APRN, MARU N 782.3 EDEMA 07/29/2009 RIZWANA JUSTIN APRN 782.3 EDEMA 07/29/2009 JORDEN RODRÍGUEZ KG R 782.3 EDEMA 07/29/2009 RIZWANA JUSTIN APRN 782.3 EDEMA 07/29/2009 CIFUENTES DO, DANTE K 782.3 EDEMA 07/29/2009 RIZWANA JUSTIN APRN 782.3 EDEMA 07/29/2009 CARMINAAUBRIE WOLFE APRN S 782.3 EDEMA 2009 RIZWANA JUSTIN APRN 787.02 NAUSEA ALONE 2009 RIZWANA JUSTIN APRN 789.00 ABDOMINAL PAIN UNSPECIFIED SITE 2009 787.02 NAUSEA ALONE 2009 789.00 ABDOMINAL PAIN UNSPECIFIED SITE 2009 787.02 NAUSEA ALONE 2009 789.00 ABDOMINAL PAIN UNSPECIFIED SITE 2009 MICHAEL KNAPP APRN R 787.02 NAUSEA ALONE 2009 MICHAEL KNAPP APRN R 789.00 ABDOMINAL PAIN UNSPECIFIED SITE 2009 787.02 NAUSEA ALONE 2009 789.00 ABDOMINAL PAIN UNSPECIFIED SITE 2009 CIFUENTES DO, DANTE K 787.02 NAUSEA ALONE 2009 CIFUENTES DO, DANTE K 789.00 ABDOMINAL PAIN UNSPECIFIED SITE 2009 BOBO WILLIAM RODRÍGUEZ, MARU N 787.02 NAUSEA ALONE 2009 BOBO WILLIAM RODRÍGUEZ, MARU N 789.00 ABDOMINAL PAIN UNSPECIFIED SITE 2009 RIZWANA JUSTIN APRN 787.02 NAUSEA ALONE 2009 RIZWANA JUSTIN APRN 789.00 ABDOMINAL PAIN UNSPECIFIED SITE 2009 KG LEONARDO APRN R 787.02 NAUSEA ALONE 2009 ILEANA LEONARDO APRNINA R 789.00 ABDOMINAL PAIN UNSPECIFIED SITE 2009 RIZWANA JUSTIN APRN 787.02 NAUSEA ALONE 2009 RIZWANA JUSTIN APRN 789.00 ABDOMINAL PAIN UNSPECIFIED SITE 2009 CIFUENTES DO, DANTE K 787.02 NAUSEA ALONE 2009 CIFUENTES DO, DANTE K 789.00 ABDOMINAL PAIN UNSPECIFIED SITE 2009 RIZWANA JUSTIN APRN 787.02 NAUSEA ALONE 2009 RIZWANA JUSTIN APRN 789.00 ABDOMINAL PAIN UNSPECIFIED SITE 2009 AUBRIE GREWAL APRN S 787.02 NAUSEA ALONE 2009 LETA GREWAL APRNA S 789.00 ABDOMINAL PAIN UNSPECIFIED SITE 03/08/2010 RIZWANA JUSTIN APRN 008.8 INTESTINAL INFECTION DUE TO OTHER ORGANISM NOT ELSEWHERE CLASSIFIED 03/08/2010 008.8 INTESTINAL INFECTION DUE TO OTHER ORGANISM NOT ELSEWHERE CLASSIFIED 03/08/2010 008.8 INTESTINAL INFECTION DUE TO OTHER ORGANISM NOT ELSEWHERE CLASSIFIED 03/08/2010 MICHAEL KNAPP APRN R 008.8 INTESTINAL INFECTION DUE TO OTHER ORGANISM NOT ELSEWHERE CLASSIFIED 03/08/2010 008.8 INTESTINAL INFECTION DUE TO OTHER ORGANISM NOT ELSEWHERE CLASSIFIED 03/08/2010 DANTE CIFUENTES DO K 008.8 INTESTINAL INFECTION DUE TO OTHER ORGANISM NOT ELSEWHERE CLASSIFIED 03/08/2010 MARU SOUSA APRN N 008.8 INTESTINAL INFECTION DUE TO OTHER ORGANISM NOT ELSEWHERE CLASSIFIED 03/08/2010 RIZWANA JUSTIN APRN 008.8 INTESTINAL INFECTION DUE TO OTHER ORGANISM NOT ELSEWHERE CLASSIFIED 03/08/2010 KG LEONARDO APRN R 008.8 INTESTINAL INFECTION DUE TO OTHER ORGANISM NOT ELSEWHERE CLASSIFIED 03/08/2010 RIZWANA JUSTIN APRN 008.8 INTESTINAL INFECTION DUE TO OTHER ORGANISM NOT ELSEWHERE CLASSIFIED 03/08/2010 DANTE CIFUENTES DO K 008.8 INTESTINAL INFECTION DUE TO OTHER ORGANISM NOT ELSEWHERE CLASSIFIED 03/08/2010 RIZWANA JUSTIN APRN 008.8 INTESTINAL INFECTION DUE TO OTHER ORGANISM NOT ELSEWHERE CLASSIFIED 03/08/2010 AUBRIE GREWAL APRN S 008.8 INTESTINAL INFECTION DUE TO OTHER ORGANISM NOT ELSEWHERE CLASSIFIED 03/17/2011 RIZWANA JUSTIN APRN 401.0 HYPERTENSION MALIGNANT ESSENTIAL 03/17/2011 RIZWANA JUSTIN APRN V68.1 ISSUE OF REPEAT PRESCRIPTIONS 03/17/2011 401.0 HYPERTENSION MALIGNANT ESSENTIAL 03/17/2011 V68.1 ISSUE OF REPEAT PRESCRIPTIONS 03/17/2011 401.0 HYPERTENSION MALIGNANT ESSENTIAL 03/17/2011 V68.1 ISSUE OF REPEAT PRESCRIPTIONS 03/17/2011 MICHAEL KNAPP APRN R 401.0 HYPERTENSION MALIGNANT ESSENTIAL 03/17/2011 MICHAEL KNAPP APRN R V68.1 ISSUE OF REPEAT PRESCRIPTIONS 03/17/2011 401.0 HYPERTENSION MALIGNANT ESSENTIAL 03/17/2011 V68.1 ISSUE OF REPEAT PRESCRIPTIONS 03/17/2011 CIFUENTES DO, DANTE K 401.0 HYPERTENSION MALIGNANT ESSENTIAL 03/17/2011 CIFUENTES DO, DANTE K V68.1 ISSUE OF REPEAT PRESCRIPTIONS 03/17/2011 BOBO RACHELERO GYMNASIUM TEACHER, MARU N 401.0 HYPERTENSION MALIGNANT ESSENTIAL 03/17/2011 BOBO CASHERO GYMNASIUM TEACHER, MARU N V68.1 ISSUE OF REPEAT PRESCRIPTIONS 03/17/2011 RIZWANA JUSTIN APRN 401.0 HYPERTENSION MALIGNANT ESSENTIAL 03/17/2011 RIZWANA JUSTIN APRN V68.1 ISSUE OF REPEAT PRESCRIPTIONS 03/17/2011 ILEANA LEONARDO APRNINA R 401.0 HYPERTENSION MALIGNANT ESSENTIAL 03/17/2011 JORDEN RODRÍGUEZ KG R V68.1 ISSUE OF REPEAT PRESCRIPTIONS 03/17/2011 RIZWANA JUSTIN APRN 401.0 HYPERTENSION MALIGNANT ESSENTIAL 03/17/2011 RIZWANA JUSTIN APRN V68.1 ISSUE OF REPEAT PRESCRIPTIONS 03/17/2011 CIFUENTES DO, DANTE K 401.0 HYPERTENSION MALIGNANT ESSENTIAL 03/17/2011 CIFUENTES DO, DANTE K V68.1 ISSUE OF REPEAT PRESCRIPTIONS 03/17/2011 RIZWANA JUSTIN APRN 401.0 HYPERTENSION MALIGNANT ESSENTIAL 03/17/2011 RIZWANA JUSTIN APRN V68.1 ISSUE OF REPEAT PRESCRIPTIONS 03/17/2011 AUBRIE GREWAL APRN S 401.0 HYPERTENSION MALIGNANT ESSENTIAL 03/17/2011 AUBRIE GREWAL APRN S V68.1 ISSUE OF REPEAT PRESCRIPTIONS 06/01/2011 RIZWANA JUSTIN APRN 706.1 ACNE 06/01/2011 RIZWANA JUSTIN APRN V77.0 THYROID DISORDER SCREENING 06/01/2011 706.1 ACNE 06/01/2011 V77.0 THYROID DISORDER SCREENING 06/01/2011 706.1 ACNE 06/01/2011 V77.0 THYROID DISORDER SCREENING 06/01/2011 MICHAEL KNAPP APRN R 706.1 ACNE 06/01/2011 MICHAEL KNAPP APRN R V77.0 THYROID DISORDER SCREENING 06/01/2011 706.1 ACNE 06/01/2011 V77.0 THYROID DISORDER SCREENING 06/01/2011 ESAU QUIROS DANTE K 706.1 ACNE 06/01/2011 ESAU QUIROS, DANTE K V77.0 THYROID DISORDER SCREENING 06/01/2011 JIHAN RAMOSFRANCK RODRÍGUEZ, MARU N 706.1 ACNE 06/01/2011 BOBO RACHLEFRANCK RODRÍGUEZ, MARU N V77.0 THYROID DISORDER SCREENING 06/01/2011 RIZWANA JUSTIN APRN T 706.1 ACNE 06/01/2011 RIZWANA JUSTIN APRN T V77.0 THYROID DISORDER SCREENING 06/01/2011 ILEANA LEONARDO APRNINA R 706.1 ACNE 06/01/2011 JORDEN RODRÍGUEZ KG R V77.0 THYROID DISORDER SCREENING 06/01/2011 RIZWANA JUSTIN APRN T 706.1 ACNE 06/01/2011 RIZWANA JUSTIN APRN T V77.0 THYROID DISORDER SCREENING 06/01/2011 CIFUENTES MARÍA QUIROSA K 706.1 ACNE 06/01/2011 MARÍA CIFUENTES DOA K V77.0 THYROID DISORDER SCREENING 06/01/2011 RIZWANA JUSTIN APRN T 706.1 ACNE 06/01/2011 RIZWANA JUSTIN APRN T V77.0 THYROID DISORDER SCREENING 06/01/2011 AUBRIE GREWAL APRN S 706.1 ACNE 06/01/2011 AUBRIE GREWAL APRN S V77.0 THYROID DISORDER SCREENING 05/03/2012 MICHAEL KNAPP APRN R 386.30 LABYRINTHITIS 05/03/2012 386.30 LABYRINTHITIS 05/03/2012 DANTE CIFUENTES DO K 386.30 LABYRINTHITIS 05/03/2012 MARU SOUSA APRN N 386.30 LABYRINTHITIS 05/03/2012 RIZWANA JUSTIN APRN T 386.30 LABYRINTHITIS 05/03/2012 ILEANA LEONARDO APRNINA R 386.30 LABYRINTHITIS 05/03/2012 RIZWANA JUSTIN APRN T 386.30 LABYRINTHITIS 05/03/2012 DANTE CIFUENTES DO K 386.30 LABYRINTHITIS 05/03/2012 RIZWANA JUSTIN APRN T 386.30 LABYRINTHITIS 05/03/2012 LETA GREWAL APRNA S 386.30 LABYRINTHITIS 05/16/2012 465.9 UPPER RESPIRATORY INFECTION 05/16/2012 CIFUENTES DO, DANTE K 465.9 UPPER RESPIRATORY INFECTION 05/16/2012 JIHAN THOMAS [employer] TE[employer]ER, MARU N 465.9 UPPER RESPIRATORY INFECTION 05/16/2012 MARGOTH EMERYNRIZWANA T 465.9 UPPER RESPIRATORY INFECTION 05/16/2012 JORDEN GYMNASIUM TEACHER, KG R 465.9 UPPER RESPIRATORY INFECTION 05/16/2012 MARGOTH EMERYNRIZWANA T 465.9 UPPER RESPIRATORY INFECTION 05/16/2012 CIFUENTES DO, DANTE K 465.9 UPPER RESPIRATORY INFECTION 05/16/2012 MARGOTH EMERYNRIZWANA T 465.9 UPPER RESPIRATORY INFECTION 05/16/2012 CARMINA GYMNASIUM TEACHER, AUBRIE S 465.9 UPPER RESPIRATORY INFECTION 11/27/2012 CIFUENTES DO, DANTE K 466.0 ACUTE BRONCHITIS 11/27/2012 JIHAN THOMAS GYMNASIUM TEACHER, MARU N 466.0 ACUTE BRONCHITIS 11/27/2012 RIZWANA JUSTIN APRN T 466.0 ACUTE BRONCHITIS 11/27/2012 JORDEN RODRÍGUEZ, KG R 466.0 ACUTE BRONCHITIS 11/27/2012 RIZWANA JUSTIN APRN T 466.0 ACUTE BRONCHITIS 11/27/2012 ESAU DO, DANTE K 466.0 ACUTE BRONCHITIS 11/27/2012 MARGOTH EMERYNRIZWANA T 466.0 ACUTE BRONCHITIS 11/27/2012 CARMINA RODRÍGUEZ, AUBRIE S 466.0 ACUTE BRONCHITIS 11/27/2013 JORDEN RODRÍGUEZ, KG R 780.79 OTHER MALAISE AND FATIGUE 11/27/2013 ILEANA LEONARDO APRNINA R 786.2 COUGH 11/27/2013 RIZWANA JUSTIN APRN T 780.79 OTHER MALAISE AND FATIGUE 11/27/2013 RIZWANA JUSTIN APRN 786.2 COUGH 11/27/2013 CIFUENTES DO, DANTE K 780.79 OTHER MALAISE AND FATIGUE 11/27/2013 CIFUENTES DO, DANTE K 786.2 COUGH 11/27/2013 RIZWANA JUSTIN APRN T 780.79 OTHER MALAISE AND FATIGUE 11/27/2013 RIZWANA JUSTIN APRN T 786.2 COUGH 11/27/2013 CARMINA EMERYN, AUBRIE S 780.79 OTHER MALAISE AND FATIGUE 11/27/2013 CARMINA RODRÍGUEZ, AUBRIE S 786.2 COUGH 12/23/2013 RIZWANA JUSTIN APRN 786.50 CHEST PAIN 12/23/2013 CIFUENTES DO, DANTE K 786.50 CHEST PAIN 12/23/2013 RIZWANA JUSTIN APRN T 786.50 CHEST PAIN 12/23/2013 CARMINA RODRÍGUEZ, AUBRIE S 786.50 CHEST PAIN 01/06/2014 DANTE CIFUENTES DO K 462 ACUTE PHARYNGITIS 01/06/2014 RIZWANA JUSTIN APRN T 462 ACUTE PHARYNGITIS 01/06/2014 AUBRIE GREWAL APRN S 462 ACUTE PHARYNGITIS 02/12/2014 RIZWANA JUSTIN APRN T 465.9 UPPER RESPIRATORY INFECTION 02/12/2014 AUBRIE GREWAL APRN S 465.9 UPPER RESPIRATORY INFECTION 06/10/2014 LETA GREWAL APRNA S 599.0 URINARY TRACT INFECTION 07/28/2015 PITER GLEASON MD Ot E07.9 DISORDER OF THYROID, UNSPECIFIED 07/28/2015 PITER GLEASON MD Ot E78.1 PURE HYPERGLYCERIDEMIA 07/28/2015 PITER GLEASON MD Ot I10 ESSENTIAL (PRIMARY) HYPERTENSION 07/28/2015 PITER GLEASON MD Ot R00.0 TACHYCARDIA, UNSPECIFIED 07/28/2015 PITER GLEASON MD Ot R00.2 PALPITATIONS 07/28/2015 PITER GLEASON MD Ot E07.9 DISORDER OF THYROID, UNSPECIFIED 07/28/2015 PITER GLEASON MD Ot E78.1 PURE HYPERGLYCERIDEMIA 07/28/2015 PITER GLEASON MD Ot I10 ESSENTIAL (PRIMARY) HYPERTENSION 07/28/2015 PITER GLEASON MD Ot R00.0 TACHYCARDIA, UNSPECIFIED 07/28/2015 PITER GLEASON MD Ot R00.2 PALPITATIONS 09/14/2015 PITER GLEASON MD Ot E07.9 DISORDER OF THYROID, UNSPECIFIED 09/14/2015 PITER GLEASON MD Ot E78.1 PURE HYPERGLYCERIDEMIA 09/14/2015 PITER GLEASON MD Ot I10 ESSENTIAL (PRIMARY) HYPERTENSION 09/14/2015 PITER GLEASON MD Ot R00.0 TACHYCARDIA, UNSPECIFIED 09/14/2015 PITER GLEASON MD Ot R00.2 PALPITATIONS Procedures Code [place] [address] ROUTINE VENIPUNCTURE 02/20/2012 41949 BMP 02/20/2012 [id number] GFR CALC (RESULT ONLY) 02/20/2012 57932 ROUTINE VENIPUNCTURE 05/01/2012 34237 GLUCOSE FINGER STICK 05/01/2012 44893 LIPID PANEL 05/01/2012 58707 OXIMETRY 11/27/2012 03820 ROUTINE VENIPUNCTURE 11/27/2013 53095 XRAY CHEST 2 VIEW 11/27/2013 21168 CBC 11/28/2013 10809 MYCOPLASMA ANTIBODY 11/29/2013 93497 UA LONG DIP 06/10/2014 Results There is no data. Encounters ACCT No. Visit Date/Time Discharge Status Pt. Type Provider Facility Loc./Unit Complaint [id number] 06/10/2014 15:44:00 06/10/2014 23:59:59 CLS Outpatient AUBRIE GREWAL APRN [id number] 02/12/2014 15:13:00 02/12/2014 23:59:59 CLS Outpatient RIZWANA JUSTIN APRN [id number] 01/06/2014 17:17:00 01/06/2014 23:59:59 CLS Outpatient DANTE CIFUENTES DO [id number] 12/23/2013 15:31:00 12/23/2013 23:59:59 CLS Outpatient RIZWANA JUSTIN APRN [id number] 11/27/2013 15:26:00 11/27/2013 23:59:59 CLS Outpatient KG LEONARDO APRN [id number] 11/08/2013 10:13:00 11/08/2013 23:59:59 CLS Outpatient RIZWANA JUSTIN APRN [id number] 04/09/2013 09:14:00 04/09/2013 23:59:59 CLS Outpatient MARU SOUSA APRN [id number] 11/27/2012 10:42:00 11/27/2012 23:59:59 CLS Outpatient DANTE CIFUENTES DO [id number] 05/03/2012 15:29:00 05/03/2012 23:59:59 CLS Outpatient MICHAEL KNAPP APRN [id number] 05/01/2012 09:23:00 05/01/2012 23:59:59 CLS Outpatient [id number] 02/20/2012 11:51:00 02/20/2012 23:59:59 CLS Outpatient [id number] 06/01/2011 15:29:00 06/01/2011 23:59:59 CLS Outpatient RIZWANA JUSTIN APRN [id number] 05/16/2012 11:42:00 Document Registration [id number] 07/27/2015 08:00:00 07/27/2015 23:59:59 CLS Outpatient VICTORINO PRASAD, PITER [facility] CARD [id number] 04/05/2018 08:00:00 ACT Emergency EDSON PRASAD, MILDRED Cabrera [facility] ER MIGRAINE
[2018-04-05] MEDS ORDERED: METOPROLOL (08:34)
--- NOTE | 2018-04-05 09:20 | NUR ---
PT NOTIFIED THAT SHE HASNT BEEN FORGOTTEN ET IS BUSY WITH MULTIPLE AMBULANCES.
--- NOTE | 2018-04-05 09:50 | NUR ---
AT NURSES DESK TALKING TO . APOLOGIZES ET NOTIFIES THEM OF A BUSY ER AND THAT HE HAS CALLED IN A 2ND PROVIDER.
--- NOTE | 2018-04-05 10:15 | NUR ---
PT OUT THE DOOR ET IS LEAVING. DR SANDHU TALKED TO THEM ET SHE DECIDED TO STAY.
[2018-04-05] MEDS ORDERED: KETOROLAC 30 MG/ML VIAL IVP STA (10:26)
[2018-04-05] MEDS ORDERED: NS IV 1000 ML 1,000 ML IV ONE (10:26)
[2018-04-05] MEDS ORDERED: fentaNYL INJECTION 100 MCG/2 ML AMP IVP STA (10:26)
--- NOTE | 2018-04-05 10:28 | ED Headache ---
General Chief Complaint: Head/Cervical Problems Stated Complaint: MIGRAINE Nursing Triage Note: ARRIVED VIA AMB TO ROOM 09. COMPLAINS OF RIGHT SIDED MIGRAINE STARTING AT 0300 TODAY. STATES ITS THE WORSE ONE SHE HAS HAD. PT TOOK TYLENOL AT 0300 AND EXCEDRIN MIGRAINE AT 0615. PT HAS A HX OF HYPERTENSION ET TAKES HER MED IN THE AFTERNOON. Nursing Sepsis Screen: No Definite Risk Source: patient Exam Limitations: no limitations History of Present Illness Date Seen by Provider: Apr 05, 2018 Time Seen by Provider: 10:17 Initial Comments Here with report of headache to the right side and behind the right eye. States that is fairly significant. She has tried ibuprofen and Excedrin today and that has not helped. She states that it helped a little but did not make it go away. Does admit that she's had recent upper respiratory infection for the last week and thought she was a little better from that. Denies vomiting but has had some nausea with the pain. Does not have fever currently. Denies vision problems otherwise. Denies neck pain. Timing/Duration: 4-6 hours Severity/Quality: moderate Location: frontal Prior Headaches/Recent Trauma: occasional headaches Modifying Factors: worse with exposure to light; improves with rest Associated Symptoms: No confusion, No fever/chills, No loss of consciousness; nausea/vomiting, nasal congestion; No rash, No stiff neck, No weakness Allergies and Home Medications Allergies Coded Allergies: Codeine (Verified Allergy, Unknown, 06/09/09) Fluticasone (Verified Allergy, Unknown, 06/09/09) Tramadol (Verified Allergy, Unknown, 06/09/09) Home Medications Amoxicillin/Potassium Clav 1 Each Tablet, 1 EACH PO BID Prescribed by: MILDRED SANDHU on 04/05/18 1307 Patient Home Medication List Home Medication List Reviewed: Yes Review of Systems Review of Systems Constitutional: see HPI; No chills, No fever Eyes: See HPI Ears, Nose, Mouth, Throat: see HPI Respiratory: No cough, No short of breath Cardiovascular: No chest pain, No edema Gastrointestinal: No abdominal pain, No nausea, No vomiting : No Musculoskeletal: No muscle pain, No neck pain Skin: no symptoms reported All Other Systems Reviewed Negative Unless Noted: Yes Past Pzkcizo-Ygrnvb-Qutvop Hx Past Med/Social Hx: Reviewed Nursing Past Med/Soc Hx Patient Social History Alcohol Use: Denies Use Recreational Drug Use: No Smoking Status: Never a Smoker Recent Foreign Travel: No Contact w/Someone Who Travel: No Recent Infectious Disease Expo: No Recent Hopitalizations: Yes Past Medical History Surgeries: Yes Tonsillectomy Respiratory: No Cardiac: Yes Hypertension Neurological: Yes Headaches /Migraines : No (DEPO) Reproductive Disorders: Yes Genitourinary: No Gastrointestinal: No Musculoskeletal: No Endocrine: No HEENT: No Cancer: No Psychosocial: No Integumentary: No Blood Disorders: No Family Medical History Reviewed Nursing Family Hx Physical Exam Vital Signs Vital Signs - First Documented 04/05/18 08:27 Temp 98.0 Pulse 93 Resp 16 B/P (MAP) 148/114 (125) Pulse Ox 98 O2 Delivery Room Air Capillary Refill : Less Than 3 Seconds Height, Weight, BMI Height: 5'4.00" Weight: 180lbs. oz. 81.519902rl; BMI Method:Stated General Appearance: WD/WN, no apparent distress HEENT: PERRL/EOMI, pharynx normal, other (right maxillary and frontal sinus tenderness. Moderate bilateral nasal congestion with moderate erythema.) Neck: full range of motion, supple Cardiovascular: regular rate, rhythm, no murmur Respiratory: lungs clear, normal breath sounds Gastrointestinal: non tender, soft Back: normal inspection, no CVA tenderness, no vertebral tenderness Extremities: non-tender, normal inspection Psychiatric: alert, oriented x 3 Crainal Nerves: normal hearing, normal speech, PERRL Coordination/Gait: normal gait Motor/Sensory: no motor deficit, no sensory deficit Skin: warm/dry, other (redness to the bilateral cheeks.) Progress/Results/Core Measures Results/Orders Lab Results Laboratory Tests Test 04/05/18 10:28 Range/Units White Blood Count 12.7 H 4.3-11.0 10^3/uL Red Blood Count 5.18 4.35-5.85 10^6/uL Hemoglobin 14.8 11.5-16.0 G/DL Hematocrit 44 35-52 % Mean Corpuscular Volume 85 80-99 FL Mean Corpuscular Hemoglobin 29 25-34 PG Mean Corpuscular Hemoglobin Concent 34 32-36 G/DL Red Cell Distribution Width 13.7 10.0-14.5 % Platelet Count 294 130-400 10^3/uL Mean Platelet Volume 10.1 7.4-10.4 FL Neutrophils (%) (Auto) 74 42-75 % Lymphocytes (%) (Auto) 21 12-44 % Monocytes (%) (Auto) 4 0-12 % Eosinophils (%) (Auto) 1 0-10 % Basophils (%) (Auto) 0 0-10 % Neutrophils # (Auto) 9.4 H 1.8-7.8 X 10^3 Lymphocytes # (Auto) 2.6 1.0-4.0 X 10^3 Monocytes # (Auto) 0.5 0.0-1.0 X 10^3 Eosinophils # (Auto) 0.1 0.0-0.3 10^3/uL Basophils # (Auto) 0.0 0.0-0.1 10^3/uL Sodium Level 138 135-145 MMOL/L Potassium Level 4.4 3.6-5.0 MMOL/L Chloride Level 109 H 98-107 MMOL/L Carbon Dioxide Level 19 L 21-32 MMOL/L Anion Gap 10 5-14 MMOL/L Blood Urea Nitrogen 14 7-18 MG/DL Creatinine 0.73 0.60-1.30 MG/DL Estimat Glomerular Filtration Rate > 60 BUN/Creatinine Ratio 19 Glucose Level 104 70-105 MG/DL Calcium Level 9.3 8.5-10.1 MG/DL Corrected Calcium 9.1 8.5-10.1 MG/DL Total Bilirubin 0.4 0.1-1.0 MG/DL Aspartate Amino Transf (AST/SGOT) 21 5-34 U/L Alanine Aminotransferase (ALT/SGPT) 25 0-55 U/L Alkaline Phosphatase 59 40-136 U/L C-Reactive Protein High Sensitivity 2.69 H 0.00-0.50 MG/DL Total Protein 7.8 6.4-8.2 GM/DL Albumin 4.2 3.2-4.5 GM/DL My Orders Orders - MILDRED SANDHU MD Cbc With Automated Diff (04/05/18 10:26) Comprehensive Metabolic Panel (04/05/18 10:26) Hs C Reactive Protein (04/05/18 10:26) Saline Lock/Iv-Start (04/05/18 10:26) Ns Iv 1000 Ml (Sodium Chloride 0.9%) (04/05/18 10:26) Fentanyl Injection (Sublimaze Injection (04/05/18 10:26) Ketorolac Injection (Toradol Injection) (04/05/18 10:26) Urine Bedside (04/05/18 10:26) Ct Head Wo (04/05/18 10:26) Dexamethasone Injection (Decadron Inject (04/05/18 12:30) Medications Given in ED Current Medications Medications Dose Ordered Sig/Shawn Route Start Time Stop Time Status Last Admin Dose Admin Dexamethasone Sodium Phosphate 10 mg ONCE ONCE IV 04/05/18 12:30 04/05/18 12:31 DC 04/05/18 12:28 10 MG Sodium Chloride 1,000 ml @ 0 mls/hr Q0M ONCE IV 04/05/18 10:26 04/05/18 10:28 DC 04/05/18 10:34 1,000 MLS/HR Vital Signs/I&O 04/05/18 08:27 Temp 98.0 Pulse 93 Resp 16 B/P (MAP) 148/114 (125) Pulse Ox 98 O2 Delivery Room Air Blood Pressure Mean: 125 Progress Progress Note : Progress Note Seen and evaluated. IV, labs, CT head, normal saline 1 L bolus, Toradol 30 mg IV and fentanyl 50 g IV ordered. This did improve her pain significantly. Monitor patient. CT scan shows right maxillary sinusitis. Decadron 10 mg IV ordered. 1300: Remains improved and declines further pain medicine. Discharged home with return precautions. Patient verbalize understanding instructions and agreement with plan. Diagnostic Imaging Diagonstic Imaging: CT Plain Films/CT/US/NM/MRI: head Comments NAME: [facility] REC#: [id number] PT STATUS: REG ER : 1980 PHYSICIAN: MILDRED SANDHU MD ADMIT DATE: 04/05/18/ER Signed Date of Exam: 04/05/18 CT HEAD WO PROCEDURE: CT head without contrast. TECHNIQUE: Multiple contiguous axial images were obtained through the brain without the use of intravenous contrast. INDICATION: Right-sided headache. No prior studies are available for comparison. FINDINGS: Ventricles and sulci are within normal limits. No sulcal effacement, midline shift or hemorrhage is detected. Cisterns are patent. Visualized paranasal sinuses are clear apart from some mucosal thickening of the right maxillary sinus. IMPRESSION: No acute intracranial process is detected. Dictated by: Dictated on workstation # [id number] Dict: 04/05/18 1053 Trans: 04/05/18 1252 Interpreted by: DESI WESTBROOK MD Electronically signed by: DESI WESTBROOK MD 04/05/18 1252 Departure Impression Primary Impression: Headache Qualified Codes: R51 - Headache Additional Impression: Acute sinusitis Qualified Codes: J01.00 - Acute maxillary sinusitis, unspecified Disposition: HOME, SELF-CARE Condition: Improved Departure-Patient Inst. Decision time for Depature: 13:05 Referrals: DANTE CIFUENTES DO (PCP) Primary Care Physician RIZWANA JUSTIN (Family) Primary Care Physician Patient Instructions: Sinusitis, Adult (DC), Headache, Adult (DC) Add. Discharge Instructions: All discharge instructions reviewed with patient and/or family. Voiced understanding. Drink plenty of fluids. You may take ibuprofen 800 mg every 8 hours as needed for pain. You next dose of that would be at about 4 p.m. You may take your Excedrin or acetaminophen 2 tablets every 6 hours as needed for pain. You may use Afrin nasal spray or the generic, 12 hour relief, 2 sprays to each nostril twice daily for 3 days only and then stop. Do not use more than 3 days. Follow -up with your Dr. in a few days for recheck. Take other medications as directed. Return for worse pain, fever, vomiting, weakness, breathing problems or other concerns as needed. Scripts Amoxicillin/Potassium Clav (Augmentin 875-125 Tablet) 1 Each Tablet 1 EACH PO BID, #14 TAB 0 Refills Prov: MILDRED SANDHU MD 04/05/18 MILDRED SANDHU MD Apr 05, 2018 10:28
[2018-04-05 10:36] LABS: BASOPHILS % (AUTO) 0 % (0-10); EOSINOPHILS # (AUTO) 0.1 10^3/uL (0.0-0.3); EOSINOPHILS % (AUTO) 1 % (0-10); HEMATOCRIT 44 % (35-52); HEMOGLOBIN 14.8 G/DL (11.5-16.0); LYMPHOCYTES # (AUTO) 2.6 X 10^3 (1.0-4.0); LYMPHOCYTES % (AUTO) 21 % (12-44); MEAN CORPUSCULAR HEMOGLOBIN 29 PG (25-34); MEAN CORPUSCULAR HGB CONC 34 G/DL (32-36); MEAN CORPUSCULAR VOLUME 85 FL (80-99); MEAN PLATELET VOLUME 10.1 FL (7.4-10.4); MONOCYTES # (AUTO) 0.5 X 10^3 (0.0-1.0); MONOCYTES % (AUTO) 4 % (0-12); NEUTROPHILS # (AUTO) 9.4 X 10^3 (1.8-7.8); NEUTROPHILS % (AUTO) 74 % (42-75); PLATELET COUNT 294 10^3/uL (130-400); RED BLOOD COUNT 5.18 10^6/uL (4.35-5.85); RED CELL DISTRIBUTION WIDTH 13.7 % (10.0-14.5); WHITE BLOOD COUNT 12.7 10^3/uL (4.3-11.0)
[2018-04-05 10:53] LABS: ALANINE AMINOTRANSFERASE 25 U/L (0-55); ALBUMIN 4.2 GM/DL (3.2-4.5); ALKALINE PHOSPHATASE 59 U/L (40-136); BILIRUBIN,TOTAL 0.4 MG/DL (0.1-1.0); BUN/CREATININE RATIO 19; CALCIUM 9.3 MG/DL (8.5-10.1); CARBON DIOXIDE 19 MMOL/L (21-32); CHLORIDE 109 MMOL/L (98-107); CREATININE SERUM 0.73 MG/DL (0.60-1.30); GFR ESTIMATED > 60; GLUCOSE 104 MG/DL (70-105); POTASSIUM 4.4 MMOL/L (3.6-5.0); SODIUM 138 MMOL/L (135-145); TOTAL PROTEIN 7.8 GM/DL (6.4-8.2)
--- NOTE | 2018-04-05 11:10 | NUR ---
TECH TALKED TO PT WHO STATES SHE IS FEELING BETTER. NOTIFIED OF BUSY ER.
--- NOTE | 2018-04-05 11:50 | NUR ---
IN ROOM AT THIS TIME.
--- NOTE | 2018-04-05 12:28 | NUR ---
PT STATES HER HEADACHE IS BETTER AND DOES NOT NEED ANY PAIN MEDS AT THIS TIME. WARM BLANKET GIVEN.
[2018-04-05] MEDS ORDERED: DEXAMETHASONE 10 MG/ML (DECADRON) 1 ML VIAL IV ONE (12:30)
--- NOTE | 2018-04-05 12:49 | NUR ---
TALKED WITH AUBRIE CONCERNING THE CT NOT BEING READ.
--- NOTE | 2018-04-05 12:55 | Diagnostic Imaging Report ---
PROCEDURE: CT head without contrast. TECHNIQUE: Multiple contiguous axial images were obtained through the brain without the use of intravenous contrast. INDICATION: Right-sided headache. No prior studies are available for comparison. FINDINGS: Ventricles and sulci are within normal limits. No sulcal effacement, midline shift or hemorrhage is detected. Cisterns are patent. Visualized paranasal sinuses are clear apart from some mucosal thickening of the right maxillary sinus. IMPRESSION: No acute intracranial process is detected. Dictated by: Dictated on workstation # [id number]
--- NOTE | 2018-04-05 13:04 | NUR ---
NOTIFIED CT RESULTS WERE BACK.
[2018-04-05] MEDS ORDERED: AMOX-358 PO (13:07)
[2018-04-05 13:11] VITALS: BP 151/108
--- NOTE | 2018-04-05 13:11 | NUR ---
PT STATES SHE WILL TAKE HER BP MED WHEN SHE GETS HOME.
== END 2018-04-05 13:11 | disposition home or self-care (01) ==
LOC: EDUNIT# 07:59 → ER 08:00
DX: R51 Headache (principal); J01.90 Acute sinusitis, unspecified; I10 Essential (primary) hypertension; Z88.5 Allergy status to narcotic agent; Z88.8 Allergy status to other drugs, medicaments and biological substances; Z88.6 Allergy status to analgesic agent; Z90.89 Acquired absence of other organs; Z86.69 Personal history of other diseases of the nervous system and sense organs
CPT/HCPCS: 36415; 70450; 80053; 84703; 85025; 86141

== ENCOUNTER → 2018-10-01 | Outpatient (CLI) | payer OTHER ==
[~2018-10-01] MED LIST: AMOX-358 PO; METOPROLOL
== END ==
LOC: CARD 08:12
PROVIDERS: ATTEND Physician Assistant
DX: R07.89 Other chest pain (principal); I10 Essential (primary) hypertension; R00.2 Palpitations; R00.0 Tachycardia, unspecified
CPT/HCPCS: 93306

== ENCOUNTER → 2019-03-22 | Outpatient (CLI) | payer OTHER ==
--- NOTE | 2019-03-22 11:14 | Diagnostic Imaging Report ---
INDICATION: Hypertension. TECHNIQUE: Bilateral renal sonography performed in the routine fashion, including renal artery Doppler. FINDINGS: The right kidney measures 12.9 x 5.7 x 5.7 cm. The left kidney measures 12.5 x 5.4 x 5.6 cm. Both kidneys show normal cortical echogenicity and thickness with no hydronephrosis or mass. The urinary bladder appears unremarkable; there are bilateral ureteral jets. Renal artery Doppler shows no evidence of significant renal artery stenosis. Peak velocity in the right renal artery is 119 cm/s, peak velocity in the left renal artery is 86 cm/s. Abdominal aortic velocity is 93 cm cm/s. There is no elevation of the renal artery/aortic ratio. IMPRESSION: Unremarkable bilateral renal sonography, with unremarkable renal artery Doppler. Dictated by: Dictated on workstation # [id number]
== END ==
LOC: RAD 08:19
PROVIDERS: ATTEND Physician Assistant
DX: I10 Essential (primary) hypertension (principal); E78.2 Mixed hyperlipidemia; R00.2 Palpitations; Z82.49 Family history of ischemic heart disease and other diseases of the circulatory system
CPT/HCPCS: 76770; 93975

== ENCOUNTER → 2020-11-05 | Outpatient (CLI) | payer OTHER | LOC: GIR 15:04 | PROVIDERS: ATTEND Internal Medicine | DX: Z01.89 Encounter for other specified special examinations (principal) | CPT/HCPCS: 84145 ==